=== PATIENT | male | born 1930 | race Caucasian/White ===

== ENCOUNTER 2017-06-15 16:43 | Inpatient (IN) ==
[2017-06-15] MEDS ORDERED: ONDANSETRON 4 MG/2 ML VIAL IV PRN (17:55)
[2017-06-15] MEDS ORDERED: MORPHINE 2 MG/1 ML SYRINGE IV STA ×2 (17:56→18:30)
[2017-06-15] MEDS ORDERED: ONDANSETRON 4 MG/2 ML VIAL IV STA (17:56)
[2017-06-15] MEDS ORDERED: ONDANSETRON 4 MG/2 ML VIAL ONE (18:01)
[2017-06-15] MEDS ORDERED: MORPHINE 2 MG/1 ML SYRINGE ONE (18:01)
[2017-06-15 18:10] LABS: Basophils % 0.2 % (0.0-0.8); Eosinophils # 0.1 10*3/uL (0.0-0.87); Eosinophils % 0.8 % (0.00-10.9); Hematocrit 31.7 VOL% (42.0-52.0); Hemoglobin 10.3 GM/DL (14.0-18.0); Immature Granulocytes % 1.7 %; Immature Granulocytes Absolute 0.18 #; Lymphocytes # 0.8 10*3/uL (1.4-4.0); Lymphocytes % 7.6 % (21.2-54.2); Mean Corpuscular HGB Conc 32.5 GM/DL (32-36); Mean Corpuscular Hemoglobin 30 PG (27-34); Mean Corpuscular Volume 92.2 FL (87-102); Mean Platelet Volume 9.7 FL (9.6-12.0); Monocytes % 9.8 % (1.7-12.7); Neutrophils # 8.5 10*3/uL (1.4-7.4); Neutrophils % 79.9 % (38.7-73.9); Platelet Count 170 T/CUMM (130-400); Red Blood Count 3.44 MC/CUMM (3.8-5.5); Red Cell Distribution Width 15.9 % (9.3-17.3); White Blood Count 10.6 T/CUMM (4-12)
[2017-06-15 18:15] LABS: Apearance,Urine CLEAR (Clear); Bacteria,Urine Occasional /HPF (Few); Bilirubin,Urine Negative (Negative); Blood, Urine Moderate mg/dL (Negative); Glucose,Urine (UA) Negative (Negative); Ketones,Urine Negative (Negative); Mucus,Urine Occasional /LPF (Occasional); Nitrite,Urine Negative (Negative); Protein,Urine Negative; RBC,Urine 4 /HPF (0-4); Urine Color Yellow (Yellow); Urine Specific Gravity 1.006 (1.001-1.035); Urine Urobilinogen < 2.0 EU/DL (0.2-1.0); WBC,Urine 4 /HPF (0-6)
[2017-06-15 18:41] LABS: Albumin 3.4 G/DL (3.4-5.0); Bilirubin,Total 0.5 MG/DL (0.2-1.0); Calcium 8.9 MG/DL (8.5-10.1); Magnesium 2.4 MG/DL (1.8-2.4); Osmolality,Calculated 276.4 MOS/KG (273-304); Risk Ratio 3.21; Thyroid Stimulating Hormone 3.05 uIU/ml (0.358-3.74); Total Protein 7.5 G/DL (6.4-8.3); VLDL CHOLESTEROL 23.2 MG/DL
[2017-06-15 23:40] LABS: Apearance,Urine Slightly Hazy (Clear); Bacteria,Urine Occasional /HPF (Few); Bilirubin,Urine Negative (Negative); Blood, Urine Small mg/dL (Negative); Glucose,Urine (UA) Negative (Negative); Hyaline Casts,Urine 7 /LPF (0-3); Ketones,Urine Negative (Negative); Mucus,Urine Occasional /LPF (Occasional); Nitrite,Urine Negative (Negative); Protein,Urine Negative; RBC,Urine 4 /HPF (0-4); Squamous Epithelial Cell,Urine Occasional /HPF (0-10); Urine Color Yellow (Yellow); Urine Specific Gravity 1.009 (1.001-1.035); Urine Urobilinogen < 2.0 EU/DL (0.2-1.0); WBC,Urine 2 /HPF (0-6)
[2017-06-15] MEDS: SODIUM CHLORIDE 0.9% 1,000 ML IV SCH (23:47)
[2017-06-16] MEDS ORDERED: HALOPERIDOL 5 MG/ML AMP IV ONE (01:25)
[2017-06-16 04:26] LABS: Albumin 3.5 G/DL (3.4-5.0); Bilirubin,Total 0.7 MG/DL (0.2-1.0); Magnesium 2.4 MG/DL (1.8-2.4); Osmolality,Calculated 278.2 MOS/KG (273-304); Potassium 5.4 MMOL/L (3.5-5.1); Thyroid Stimulating Hormone 3.26 uIU/ml (0.358-3.74); Total Protein 7.1 G/DL (6.4-8.3)
[2017-06-16 05:56] LABS: Basophils % 0.2 % (0.0-0.8); Eosinophils # 0.1 10*3/uL (0.0-0.87); Eosinophils % 0.7 % (0.00-10.9); Hematocrit 31.9 VOL% (42.0-52.0); Hemoglobin 10.1 GM/DL (14.0-18.0); Immature Granulocytes % 1.2 %; Immature Granulocytes Absolute 0.16 #; Lymphocytes % 7.9 % (21.2-54.2); Mean Corpuscular HGB Conc 31.7 GM/DL (32-36); Mean Corpuscular Hemoglobin 29 PG (27-34); Monocytes # 1.4 10*3/uL (0.11-0.8); Monocytes % 10.6 % (1.7-12.7); Neutrophils # 10.5 10*3/uL (1.4-7.4); Neutrophils % 79.4 % (38.7-73.9); Platelet Count 183 T/CUMM (130-400); Red Blood Count 3.43 MC/CUMM (3.8-5.5); Red Cell Distribution Width 16.1 % (9.3-17.3); White Blood Count 13.2 T/CUMM (4-12)
[2017-06-16] MEDS: SODIUM CHLORIDE 0.9% 1,000 ML IV SCH ×2 (07:29→20:26)
[2017-06-16] MEDS ORDERED: ceFAZolin 1,000 MG VIAL ONE ×2 (09:55→10:12)
[2017-06-16] MEDS ORDERED: MORPHINE 2 MG/1 ML SYRINGE IV PRN (10:58)
[2017-06-16] MEDS ORDERED: LACTATED RINGERS 1,000 ML IV ONE (11:11)
[2017-06-16] MEDS ORDERED: NEOSTIGMINE 10 MG/10 ML VIAL ONE (11:11)
[2017-06-16] MEDS ORDERED: PHENYLEPHRINE DRIP 20 MG/250 ML PREMIX IV ONE (11:11)
[2017-06-16] MEDS ORDERED: DESFLURANE 1 UNIT/15 MINUTE INH ONE (11:11)
[2017-06-16] MEDS ORDERED: GLYCOPYRROLATE 0.4 MG/2 ML VIAL ONE (11:11)
[2017-06-16] MEDS ORDERED: EPINEPHrine 1 MG/10 ML SYRINGE ONE (11:11)
[2017-06-16] MEDS ORDERED: ETOMIDATE 20 MG/10 ML VIAL IV ONE (11:11)
[2017-06-16] MEDS ORDERED: fentaNYL 100 MCG/2 ML VIAL ONE (11:12)
[2017-06-16] MEDS: MORPHINE 2 MG/1 ML SYRINGE IV PRN ×2 (15:06→20:27)
[2017-06-16] MEDS ORDERED: TUBERCULIN SKIN TEST 0.1 ML SYRINGE INTRADERM ONE (15:54)
[2017-06-16] MEDS: ceFAZolin 1,000 MG in SYRINGE 1 EACH IV SCH (19:58)
[2017-06-16] MEDS ORDERED: TEMAZEPAM 15 MG CAPSULE PO PRN (21:00)
[2017-06-17] MEDS: ceFAZolin 1,000 MG in SYRINGE 1 EACH IV SCH ×3 (01:59→18:47)
[2017-06-17] MEDS: MORPHINE 2 MG/1 ML SYRINGE IV PRN ×2 (02:41→15:11)
[2017-06-17 05:47] LABS: Basophils % 0.2 % (0.0-0.8); Eosinophils % 0.3 % (0.00-10.9); Hematocrit 28.4 VOL% (42.0-52.0); Hemoglobin 9.1 GM/DL (14.0-18.0); Immature Granulocytes % 1.2 %; Immature Granulocytes Absolute 0.17 #; Lymphocytes # 1.2 10*3/uL (1.4-4.0); Lymphocytes % 8.3 % (21.2-54.2); Mean Corpuscular Hemoglobin 30 PG (27-34); Mean Corpuscular Volume 94.7 FL (87-102); Monocytes # 1.7 10*3/uL (0.11-0.8); Monocytes % 11.7 % (1.7-12.7); Neutrophils # 11.1 10*3/uL (1.4-7.4); Neutrophils % 78.3 % (38.7-73.9); Platelet Count 152 T/CUMM (130-400); Red Cell Distribution Width 16.2 % (9.3-17.3); White Blood Count 14.2 T/CUMM (4-12)
[2017-06-17 06:33] LABS: Calcium 8.3 MG/DL (8.5-10.1); Magnesium 2.3 MG/DL (1.8-2.4); Osmolality,Calculated 278.1 MOS/KG (273-304); Potassium 5.1 MMOL/L (3.5-5.1)
[2017-06-17] MEDS: SODIUM CHLORIDE 0.9% 1,000 ML IV SCH ×2 (09:13→22:22)
[2017-06-17] MEDS ORDERED: HALOPERIDOL 5 MG/ML AMP IV PRN (17:21)
[2017-06-18] MEDS: ceFAZolin 1,000 MG in SYRINGE 1 EACH IV SCH ×3 (01:24→19:18)
[2017-06-18 02:46] LABS: Basophils % 0.2 % (0.0-0.8); Eosinophils # 0.1 10*3/uL (0.0-0.87); Eosinophils % 0.5 % (0.00-10.9); Hematocrit 29.7 VOL% (42.0-52.0); Hemoglobin 9.4 GM/DL (14.0-18.0); Immature Granulocytes % 1.2 %; Immature Granulocytes Absolute 0.16 #; Lymphocytes % 7.7 % (21.2-54.2); Mean Corpuscular HGB Conc 31.6 GM/DL (32-36); Mean Corpuscular Hemoglobin 30 PG (27-34); Mean Platelet Volume 9.7 FL (9.6-12.0); Monocytes # 1.5 10*3/uL (0.11-0.8); Monocytes % 11.7 % (1.7-12.7); Neutrophils # 10.2 10*3/uL (1.4-7.4); Neutrophils % 78.7 % (38.7-73.9); Platelet Count 168 T/CUMM (130-400); Red Blood Count 3.16 MC/CUMM (3.8-5.5); Red Cell Distribution Width 16.3 % (9.3-17.3); White Blood Count 12.9 T/CUMM (4-12)
[2017-06-18 03:15] LABS: Bilirubin,Total 0.8 MG/DL (0.2-1.0); Calcium 8.1 MG/DL (8.5-10.1); Magnesium 2.1 MG/DL (1.8-2.4); Osmolality,Calculated 277.2 MOS/KG (273-304); Phosphorous 2.9 MG/DL (2.5-4.9); Potassium 4.9 MMOL/L (3.5-5.1); Total Protein 6.4 G/DL (6.4-8.3)
[2017-06-18] MEDS: SIMVASTATIN 40 MG TABLET PO SCH (10:17)
[2017-06-18] MEDS ORDERED: TUBERCULIN SKIN TEST 0.1 ML SYRINGE INTRADERM ONE (10:59)
[2017-06-18] MEDS ORDERED: FUROSEMIDE 40 MG/4 ML VIAL IM ONE (12:03)
[2017-06-18] MEDS: ALBUTEROL/IPRATROPIUM 3 ML NEB RESP TX SCH ×2 (13:34→19:45)
[2017-06-18] MEDS: SPIRONOLACTONE 25 MG TABLET PO SCH ×2 (21:17→21:24)
[2017-06-19] MEDS: ALBUTEROL/IPRATROPIUM 3 ML NEB RESP TX SCH ×3 (00:46→13:22)
[2017-06-19] MEDS: ceFAZolin 1,000 MG in SYRINGE 1 EACH IV SCH ×2 (01:15→09:11)
[2017-06-19 05:26] LABS: Basophils % 0.2 % (0.0-0.8); Eosinophils # 0.1 10*3/uL (0.0-0.87); Eosinophils % 0.7 % (0.00-10.9); Hemoglobin 9.6 GM/DL (14.0-18.0); Immature Granulocytes % 1.8 %; Immature Granulocytes Absolute 0.24 #; Lymphocytes # 0.8 10*3/uL (1.4-4.0); Lymphocytes % 5.7 % (21.2-54.2); Mean Corpuscular Hemoglobin 30 PG (27-34); Mean Corpuscular Volume 93.8 FL (87-102); Mean Platelet Volume 9.8 FL (9.6-12.0); Monocytes # 1.4 10*3/uL (0.11-0.8); NRBC # 0.03 10*3/uL; Neutrophils # 11.1 10*3/uL (1.4-7.4); Neutrophils % 81.6 % (38.7-73.9); Platelet Count 183 T/CUMM (130-400); Red Cell Distribution Width 16.4 % (9.3-17.3); White Blood Count 13.6 T/CUMM (4-12)
[2017-06-19 06:08] LABS: Bilirubin,Total 0.9 MG/DL (0.2-1.0); Calcium 8.3 MG/DL (8.5-10.1); Magnesium 2.1 MG/DL (1.8-2.4); Osmolality,Calculated 269.8 MOS/KG (273-304); Phosphorous 2.7 MG/DL (2.5-4.9); Potassium 5.2 MMOL/L (3.5-5.1); Total Protein 6.6 G/DL (6.4-8.3)
[2017-06-19] MEDS: SPIRONOLACTONE 25 MG TABLET PO SCH (08:14)
[2017-06-19] MEDS: SIMVASTATIN 40 MG TABLET PO SCH (08:15)
[2017-06-19] MEDS ORDERED: ASPIRIN EC 325 MG TABLET PO SCH (09:00)
[2017-06-19] MEDS ORDERED: FUROSEMIDE 40 MG TABLET PO SCH (09:00)
[2017-06-19] MEDS ORDERED: CARVEDILOL 12.5 MG TABLET PO SCH (09:00)
[2017-06-19] MEDS ORDERED: LACTULOSE 20 GM/30 ML UDCUP PO ONE (16:01)
[2017-06-19] MEDS ORDERED: BISACODYL 10 MG SUPP RECTAL ONE (16:02)
[2017-06-19 16:09] VITALS: BP 118/65
== END 2017-06-19 16:59 | DRG 494 ==
LOC: EDBD → EDUNIT# → N.ED 16:43 → SUATTDRO 17:46 → N.EDINP 17:46 → N.3E 18:55
PROVIDERS: ADMIT Internal Medicine; ATTEND Internal Medicine